=== PATIENT | female | born 1975 | race African-American/Black ===

== ENCOUNTER 2020-11-27 15:09 | Emergency (ER) | payer OTHER ==
[~2020-11-27] VITALS: Ht 177.8 cm; Wt 159.7 kg
== END 2020-11-28 01:17 | disposition home or self-care (01) ==
LOC: ED 15:09
DX: T18.108A Unspecified foreign body in esophagus causing other injury, initial encounter (principal); Z88.6 Allergy status to analgesic agent; Y92.89 Other specified places as the place of occurrence of the external cause